=== PATIENT | female | born 1950 | race African-American/Black ===

== ENCOUNTER → 2018-11-01 | Outpatient (CLI) | payer MEDICARE ==
[2018-07-04 19:44] VITALS: BP 124/69
[~2018-11-01] MED LIST: GUAI5SYR PO; LEVO750T31 PO; Nicotine 21MG TD
--- NOTE | 2018-11-01 17:53 | KCIC ---
CHEST PA LATERAL History: Shortness of breath, pneumonia Comparison: 06/28/2018 AP view of the chest. Findings: Frontal and lateral views of chest were obtained. The cardiomediastinal silhouette is enlarged but this may in part be technique related. Pulmonary vasculature is normal. Notable decrease in right upper lobe infiltrate is identified. There is a new nodular component to the infiltrate suggested however in the interval at the lateral aspect. This measures up to 1 cm diameter.. No pleural effusion or pneumothorax is seen. Bony structures are unremarkable. There is no acute bone abnormality. IMPRESSION: Marked decrease in right upper lung infiltrate. Nodular component is evident at the lateral aspect in the interval. Continued follow-up to resolution is recommended. Electronically signed by: Alec Paredes MD (11/01/2018 5:50 PM) [facility]
== END | disposition home or self-care (01) ==
LOC: KCIC 13:15
PROVIDERS: ATTEND Internal Medicine Pulmonary Disease
DX: R91.8 Other nonspecific abnormal finding of lung field (principal); Z87.891 Personal history of nicotine dependence; Z87.01 Personal history of pneumonia (recurrent)
CPT/HCPCS: 71046